=== PATIENT | female | born 2000 | race Caucasian/White ===

== ENCOUNTER 2021-05-01 13:10 | Inpatient (IN) | payer OTHER ==
[2021-05-01] MEDS ORDERED: BUTORPHANOL TARTRATE 1 MG/ML VIAL IVPB PRN (14:42)
[2021-05-01] MEDS ORDERED: PROMETHAZINE HCL 25 MG/1 ML VIAL IVPUSH ONE (14:42)
[2021-05-01 14:44] VITALS: BMI 44.1
[2021-05-01] MEDS ORDERED: ELECTROLYTE-148 SOLN 1,000 ML IV SCH (14:45)
[2021-05-01 15:40] LABS: BASO % 0.3 % (0-2.0); EOS % 0.7 % (0-4.5); HEMATOCRIT 35.2 % (32.4-45.2); HEMOGLOBIN 11.5 GM/dL (10.7-15.3); LYMPH % 14.7 % (8-40); MCH 24.7 pg (25.7-33.7); MCHC 32.8 g/dl (32.0-36.0); MEAN CELL VOLUME 75.5 fl (80-96); MEAN PLT VOLUME 8.8 fl (7.5-11.1); MONO % 5.4 % (3.8-10.2); NEUT % 78.9 % (42.8-82.8); PLATELET COUNT 196 10^3/uL (134-434); RBC 4.66 M/mm3 (3.60-5.2); RDW 19.2 % (11.6-15.6); WHITE BLOOD COUNT 6.6 K/mm3 (4.0-10.0)
[2021-05-01] MEDS ORDERED: DINOPROSTONE 10 MG VAGINAL SUPPOSITORY VG ONE (15:40)
[2021-05-01] MEDS ORDERED: OXYTOCIN 30 UNITS in 0.9% NS 30 UNIT/500 ML INFUS.BAG IVPB SCH (15:45)
[2021-05-01 15:46] LABS: INR 0.97 (0.83-1.09); PROTHROMBIN TIME (PATIENT) 11.3 SEC (9.7-13.0)
[2021-05-01 15:54] LABS: BLOOD UREA NITROGEN 7.3 mg/dL (7-18); CALCIUM 8.8 mg/dL (8.5-10.1)
[2021-05-01 15:56] LABS: CREATININE 0.4 mg/dL (0.55-1.3)
[2021-05-01] MEDS ORDERED: OXYTOCIN 30 UNITS in 0.9% NS 30 UNIT/500 ML INFUS.BAG IVPB ONE (16:30)
[2021-05-02] MEDS ORDERED: PCA PUMP NR ONE (09:04)
[2021-05-02] MEDS ORDERED: FENTANYL/BUPIVACAINE/NS/PF - PCEA - 50 ML DISP.SYRIN EP ONE (09:04)
[2021-05-02] MEDS ORDERED: BENZOCAINE 28 GM HEMORRHOIDAL OINTMENT TP PRN (09:41)
[2021-05-02] MEDS ORDERED: METHYLERGONOVINE MALEATE 0.2 MG/1 ML AMP IM PRN (09:41)
[2021-05-02] MEDS ORDERED: WITCH HAZEL 50% (TUCKS) 40 PAD/JAR PAD TP PRN (09:41)
[2021-05-02] MEDS ORDERED: BISACODYL 10 MG SUPP.RECT RC PRN (09:41)
[2021-05-02] MEDS ORDERED: oxyCODONE HCL 5 MG TABLET PO PRN (09:41)
[2021-05-02] MEDS ORDERED: BENZOCAINE 20% 57 GM BOTTLE TP PRN (09:41)
[2021-05-02] MEDS ORDERED: OXYTOCIN 20 UNITS in 0.9% NS 20 UNIT/1,000 ML INFUS.BAG IV SCH (09:45)
[2021-05-02] MEDS ORDERED: OXYTOCIN 20 UNITS in 0.9% NS 20 UNIT/1,000 ML INFUS.BAG IV ONE (11:43)
[2021-05-02 13:39] LABS: CORD BASE EXCESS -5.3 mmol/L (0-2); CORD PCO2 43.7 mmHg (30-78); CORD pH 7.3 (7.14-7.44)
[2021-05-02 13:40] LABS: CORD BASE EXCESS -8.1 mmol/L (0-2); CORD HCO3 20.2 mmHg (20-29); CORD pH 7.208 (7.14-7.44)
[2021-05-02] MEDS: FERROUS SO4 325 MG TABLET (FP) PO SCH ×2 (15:47→18:47)
[2021-05-02] MEDS: PRENATAL VITAMINS W/ FOLIC ACID TABLET (FP) PO SCH (16:56)
[2021-05-03] MEDS: FERROUS SO4 325 MG TABLET (FP) PO SCH ×3 (08:07→17:07)
[2021-05-03 08:29] LABS: BASO % 0.2 % (0-2.0); EOS % 0.2 % (0-4.5); HEMATOCRIT 27.3 % (32.4-45.2); HEMOGLOBIN 8.9 GM/dL (10.7-15.3); LYMPH % 15.9 % (8-40); MCH 24.7 pg (25.7-33.7); MCHC 32.8 g/dl (32.0-36.0); MEAN CELL VOLUME 75.4 fl (80-96); MEAN PLT VOLUME 9.2 fl (7.5-11.1); MONO % 5.3 % (3.8-10.2); NEUT % 78.4 % (42.8-82.8); PLATELET COUNT 169 10^3/uL (134-434); RBC 3.62 M/mm3 (3.60-5.2); RDW 19.1 % (11.6-15.6); WHITE BLOOD COUNT 8.8 K/mm3 (4.0-10.0)
[2021-05-03] MEDS: PRENATAL VITAMINS W/ FOLIC ACID TABLET (FP) PO SCH (09:38)
[2021-05-03] MEDS: IBUPROFEN 600 MG TABLET (FP) PO PRN (17:07)
[2021-05-03] MEDS: ACETAMINOPHEN 325 MG TABLET (FP) PO PRN (20:19)
[2021-05-03] MEDS ORDERED: SENNOSIDES/DOCUSATE COMBO (SENNA PLUS) TABLET (UD) PO PRN (22:00)
[2021-05-04] MEDS: IBUPROFEN 600 MG TABLET (FP) PO PRN (05:19)
[2021-05-04 10:24] VITALS: BP 115/64; PULSE 80; TEMP 98.4
[2021-05-04] MEDS: PRENATAL VITAMINS W/ FOLIC ACID TABLET (FP) PO SCH (10:42)
[2021-05-04] MEDS: FERROUS SO4 325 MG TABLET (FP) PO SCH ×2 (10:42→13:22)
[2021-05-04] MEDS: ACETAMINOPHEN 325 MG TABLET (FP) PO PRN (10:42)
== END 2021-05-04 13:55 | disposition home or self-care (01) | DRG 560 ==
LOC: JLDR 13:10 → J3W 05-02 13:40
PROVIDERS: ADMIT Obstetrics & Gynecology; ATTEND Obstetrics & Gynecology
PROC: 10E0XZZ Delivery of Products of Conception, External Approach (ICD-10-PCS; principal; 2021-05-02)
DX: O41.03X0 Oligohydramnios, third trimester, not applicable or unspecified (principal); O98.52 Other viral diseases complicating childbirth; U07.1 COVID-19; O70.1 Second degree perineal laceration during delivery; Z3A.39 39 weeks gestation of pregnancy; Z37.0 Single live birth
CPT/HCPCS: 36415; 36600; 59409; 80048; 82803; 85025; 85610; 85730; 86780; 86850; 86900; 86901; C9803; U0003; U0005